=== PATIENT | female | born 2000 | race Caucasian/White ===

== ENCOUNTER 2024-09-25 13:41 | Emergency (ER) | payer OTHER ==
[~2024-09-25] VITALS: Ht 170.2 cm; Wt 95.9 kg
[2024-09-25] MEDS ORDERED: SYNT75TA PO (13:57)
[2024-09-25] MEDS ORDERED: PREN200C PO (13:57)
[2024-09-25 16:05] VITALS: BP 122/66; TEMP 99; O2SAT 99
== END 2024-09-25 16:10 | disposition home or self-care (01) ==
LOC: M ED 13:41
DX: O98.513 Other viral diseases complicating pregnancy, third trimester (principal); J09.X2 Influenza due to identified novel influenza A virus with other respiratory manifestations; E03.9 Hypothyroidism, unspecified; Z88.2 Allergy status to sulfonamides; Z79.899 Other long term (current) drug therapy; Z3A.32 32 weeks gestation of pregnancy

== ENCOUNTER → 2024-10-21 | Outpatient (REF) | payer OTHER ==
[~2024-10-21] MED LIST: PREN200C PO; SYNT75TA PO
== END ==
LOC: M SFHCWAGY 14:32
PROVIDERS: ATTEND Nurse Practitioner Family
DX: Z36.85 Encounter for antenatal screening for Streptococcus B (principal); Z3A.36 36 weeks gestation of pregnancy

== ENCOUNTER → 2024-10-23 | Outpatient (CLI) | payer OTHER | LOC: M RAD 15:55 | PROVIDERS: ATTEND Nurse Practitioner Family | DX: O10.013 Pre-existing essential hypertension complicating pregnancy, third trimester (principal); Z3A.36 36 weeks gestation of pregnancy ==

== ENCOUNTER 2024-11-02 08:24 | Inpatient (IN) | payer OTHER ==
[~2024-11-02] VITALS: Ht 170.2 cm; Wt 101.2 kg
[2024-11-02] VITALS (13 sets, daily range): BP systolic 114–136; BP diastolic 58–86; O2SAT 97–98
[2024-11-02] MEDS ORDERED: TUMSCHW16 PO (08:47)
[2024-11-02] MEDS ORDERED: ASPI81CH33 PO (08:47)
[2024-11-02] MEDS ORDERED: ACET-897 PO (08:47)
[2024-11-02] MEDS ORDERED: HOME MED LIST COMPLETE! XX SCH (08:50)
[2024-11-02] MEDS ORDERED: TRANEXAMIC ACID INJection 1,000 MG in NS 100 ML IV PRN (09:20)
[2024-11-02] MEDS ORDERED: OXYTOCIN DRIP 30 UNITS in IV 1 EA IV PRN (09:20)
[2024-11-02] MEDS ORDERED: LIDOCAINE 1% MDV 20ML VIAL INFIL PRN (09:20)
[2024-11-02] MEDS ORDERED: CARBOPROST TROMETHAMINE 250 MCG/ML AMP IM PRN (09:20)
[2024-11-02] MEDS ORDERED: METHYLERGONOVINE MALEATE 0.2MG/ML 1ML VIAL IM PRN (09:20)
[2024-11-02 09:45] LABS: HEMATOCRIT 33.8 % (36.0-47.0); HEMOGLOBIN 11.7 g/dl (12.0-15.5); MEAN CORPUSCULAR HEMOGLOBIN 30.7 pg (27.0-33.0); MEAN CORPUSCULAR HGB CONC 34.6 g/dl (32.0-36.5); MEAN CORPUSCULAR VOLUME 88.7 fl (80.0-96.0); PLATELET COUNT, AUTOMATED 253 10^3/uL (150-450); RED BLOOD COUNT 3.81 10^6/uL (4.00-5.40)
[2024-11-02] MEDS: miSOPROStol 50MCG 1/2 TABLET PO SCH (09:47)
[2024-11-02] MEDS: PENICILLIN G POTASSIUM 5 MU IV 5 MU in DEXTROSE 5% (D5W) MINI-BAG PLU 100 ML IV STA (09:53)
[2024-11-02 10:16] LABS: LDH LACTATE DEHYDROGENASE 217 U/L (120-246)
[2024-11-02 10:17] LABS: ALT/SGPT 18 U/L (7.0-40); AST/SGOT 21 U/L (<34); BILIRUBIN,TOTAL 0.5 MG/DL (0.3-1.2); CREATININE FOR GFR 0.55 MG/DL (0.55-1.30); GLOMERULAR FILTRATION RATE > 60.0 (>60)
[2024-11-02] MEDS ORDERED: FERR325T3 PO (10:24)
[2024-11-02 10:46] LABS: HIV 1&2 SCREEN NEGATIVE (NEGATIVE)
[2024-11-02 10:54] LABS: HEPATITIS C VIRUS ABY INDEX 0.11 INDEX (<0.8)
[2024-11-02] MEDS: LR 1,000 ML IV SCH (10:54)
[2024-11-02 10:58] LABS: URIC ACID 4.4 MG/DL (3.1-7.8)
[2024-11-02 12:12] LABS: TOTAL PROTEIN,RANDOM URINE 10.4 MG/DL (0.0-14.0)
[2024-11-02 12:17] LABS: CREATININE,RANDOM URINE 31.1 MG/DL
[2024-11-02] MEDS: PEN G POT 3,000,000 UNIT/50 ML 3,000,000 UNIT in IV 1 EA IV SCH (14:00)
[2024-11-03] VITALS (40 sets, daily range): BP systolic 97–156; BP diastolic 55–89; O2SAT 97
[2024-11-03] MEDS: LEVOTHYROXINE 75MCG TABLET (0.075MG) PO SCH
[2024-11-03] MEDS: SIMETHICONE 80MG CHEW TAB PO PRN (02:39)
[2024-11-03] MEDS ORDERED: ONDANSETRON 4MG 2ML VIAL IV PRN (06:20)
[2024-11-03] MEDS ORDERED: EPIDURAL/PCA KEYS XX PRN (06:20)
[2024-11-03] MEDS ORDERED: LR 500 ML IV PRN (06:20)
[2024-11-03] MEDS ORDERED: NALOXONE INJ 0.4MG/1ML VIAL IV PRN (06:20)
[2024-11-03] MEDS ORDERED: ePHEDrine SULFATE 25 MG/5 ML(5MG/ML) SYRINGE IVP PRN (06:20)
[2024-11-03] MEDS ORDERED: diphenhydrAMINE 50MG/ML VIAL IV PRN (06:20)
[2024-11-03] MEDS: FENTANYL/ROPIVACAINE/NACL BAG 100 ML EPIDURAL SCH (07:15)
[2024-11-03] MEDS: OXYTOCIN DRIP 30 UNITS in IV 1 EA IV SCH (07:16)
[2024-11-03] MEDS ORDERED: PRENATAL VITAMINS CHEWABLE TABLET PO SCH (09:00)
[2024-11-03] MEDS ORDERED: RHOGAM 300MCG (1500IU) INJ IM SCH (15:50)
[2024-11-03] MEDS ORDERED: METHYLERGONOVINE MALEATE 0.2 MG TAB PO PRN (15:50)
[2024-11-03] MEDS ORDERED: IBUPROFEN 600MG TAB PO PRN (15:50)
[2024-11-03] MEDS ORDERED: ACETAMINOPHEN 325 MG TAB PO PRN (15:50)
[2024-11-03] MEDS: LACTATED RINGER'S 1000 ML IV STA (17:13)
[2024-11-03] MEDS: IBUPROFEN 800 MG TAB PO PRN (17:17)
[2024-11-03] MEDS: ACETAMINOPHEN 500 MG TAB PO PRN (23:46)
[2024-11-04 06:03] VITALS: BP 119/74; O2SAT 97
[2024-11-04] MEDS: PRENATAL VITAMINS CHEWABLE TABLET PO SCH (08:42)
[2024-11-04 18:25] VITALS: BP 128/83; O2SAT 98
[2024-11-04] MEDS: DIBUCAINE 1% OINTMENT 30GM TOP PRN (20:17)
[2024-11-05 06:02] VITALS: BP 95/57; O2SAT 97
[2024-11-05] MEDS: MEASLES,MUMPS,RUBELLA VACCINE INJ (MMR-II) SC.IMMUN ONE (09:00)
[2024-11-05 18:00] VITALS: BP 131/76; O2SAT 100
[2024-11-05] MEDS: DOCUSATE SODIUM 100MG CAPSULE PO PRN (22:05)
== END 2024-11-05 22:00 | disposition home or self-care (01) | DRG 807 ==
LOC: M LDI 08:24 → M OBS 11-03 18:10
PROVIDERS: ADMIT Obstetrics & Gynecology; ATTEND Obstetrics & Gynecology
PROC: 3E033VJ Introduction of Other Hormone into Peripheral Vein, Percutaneous Approach (ICD-10-PCS; 2024-11-02)
PROC: 3E0P7GC Introduction of Other Therapeutic Substance into Female Reproductive, Via Natural or Artificial Opening (ICD-10-PCS; 2024-11-02)
PROC: 10E0XZZ Delivery of Products of Conception, External Approach (ICD-10-PCS; principal; 2024-11-03)
DX: O10.02 Pre-existing essential hypertension complicating childbirth (principal); Z37.0 Single live birth; Z3A.38 38 weeks gestation of pregnancy